=== PATIENT | female | born 1965 | race Caucasian/White ===

== ENCOUNTER → 2017-02-22 | Outpatient (REF) | payer BC, SELFPAY | LOC: M LAB REF 12:11 | PROVIDERS: ATTEND Physician Assistant | DX: N39.0 Urinary tract infection, site not specified (principal) ==

== ENCOUNTER → 2020-01-16 | Outpatient (CLI) | payer BC | LOC: M OUTALCOH 07:53 | PROVIDERS: ATTEND Psychiatry & Neurology Addiction Medicine | DX: Z13.39 Encounter for screening examination for other mental health and behavioral disorders (principal); F10.10 Alcohol abuse, uncomplicated ==

== ENCOUNTER → 2020-02-27 | Outpatient (RCR) | payer BC | LOC: M OUTALCOH 01-29 09:24 | PROVIDERS: ATTEND Psychiatry & Neurology Addiction Medicine | DX: F10.10 Alcohol abuse, uncomplicated (principal) ==

== ENCOUNTER 2020-03-26 14:54 | Outpatient (RCR) | payer BC | END 2020-03-29 | LOC: M OUTALCOH 14:54 | PROVIDERS: ATTEND Psychiatry & Neurology Addiction Medicine | DX: F10.10 Alcohol abuse, uncomplicated (principal) ==

== ENCOUNTER 2020-04-23 14:00 | Outpatient (RCR) | payer BC | END 2020-04-28 | LOC: M OUTALCOH 14:00 | PROVIDERS: ATTEND Psychiatry & Neurology Addiction Medicine | DX: F10.10 Alcohol abuse, uncomplicated (principal) ==

== ENCOUNTER 2020-05-14 14:00 | Outpatient (RCR) | payer BC | END 2020-05-29 | LOC: M OUTALCOH 14:00 | PROVIDERS: ATTEND Psychiatry & Neurology Addiction Medicine | DX: F10.10 Alcohol abuse, uncomplicated (principal) ==